=== PATIENT | male | born 1975 | race Caucasian/White ===

== ENCOUNTER 2018-03-22 01:52 | Inpatient (IN) ==
[2018-03-22] MEDS ORDERED: Sod Chloride 0.9% Inj 1,000 ML IV.SIG ONE (03:04)
--- NOTE | 2018-03-22 03:14 | ED ---
HPI General Chief complaint: Overdose Stated complaint: poss od/Psych eval/DBPD Time Seen by Provider: 03/22/18 01:59 Source: patient and other Mode of arrival: EMS Limitations: no limitations History of Present Illness HPI narrative: 42yo M with PMH of bipolar disorder was brought in as [place] [facility] after he attempted to kill himself by overdosing on his medications. He took 30 of 10mg of lexapro 2 hours prior to coming. Denies any fever, chest pain, sob, n/v, abdominal pain, focal weakness or numbness. Related Data Home Medications Medication Instructions Recorded Confirmed No Known Home Medications 03/22/18 03/22/18 Allergies Allergy/AdvReac Type Severity Reaction Status Date / Time No Known Allergies Allergy Verified 03/22/18 03:04 Review of Systems ROS: all other systems reviewed are negative [facility] Medical History Medical History Bipolar 1 disorder (Acute) Emphysema of lung (Acute) Major depressive disorder (Acute) Surgical History Surgical History H/O: vasectomy (Acute) Social History Social History Substance History: No History of Abuse Second Hand Smoke Exposure: Yes Smoking Status: Current every day smoker Tobacco Type: Cigarettes How Often Do You Have a Drink Containing Alcohol: Never Recent Travel in [facility] within the Last 8 Weeks: No Recent Out of Country Travel within the Last 8 Weeks: No Immunization History Tetanus Immunization: >5 Years Exam Narrative Exam Narrative: GENERAL: 42yo M not in distress. SKIN: Focused skin assessment warm/dry. HEAD: Atraumatic. Normocephalic. EYES: Pupils equal and round at 4mm bilaterally. EOMI. ENT: No nasal bleeding or discharge. Mucous membranes pink and moist. NECK: Trachea midline. No JVD. CARDIOVASCULAR: Regular rate and rhythm. No murmur appreciated. RESPIRATORY: No accessory muscle use. Clear to auscultation. Breath sounds equal bilaterally. GASTROINTESTINAL: Abdomen soft, non-tender, nondistended. MUSCULOSKELETAL: No obvious deformities. No clubbing. No cyanosis. No edema. NEUROLOGICAL: Awake and alert. No obvious cranial nerve deficits. Motor grossly within normal limits in all extremities. Sensation intact. Normal speech. PSYCHIATRIC: Depressed. Course Initial Documented Vital Signs Temperature 98.6 F 03/22/18 02:10 Pulse Rate 62 03/22/18 02:10 Respiratory Rate 13 03/22/18 02:10 Blood Pressure 148/67 H 03/22/18 02:10 Pulse Oximetry 96 03/22/18 02:10 Last Documented Vital Signs Temperature 98 F 03/23/18 06:00 Pulse Rate 60 03/23/18 06:00 Respiratory Rate 17 03/23/18 06:00 Blood Pressure 160/80 H 03/23/18 06:00 Pulse Oximetry 95 03/23/18 06:00 Medical Decision Making MDM Narrative Medical decision making narrative: 42yo M brought in as [place] [facility] for suicidal attempt by overdosing on his lexapro. He is awake and alert and answering questions. Following commands. Pt placed on continuous environmental monitoring technician. Will obtain labs for overdose, EKG. Will give NS IVF and call poison control. Labs reviewed, mild leukocytosis. H/H normal. CMP unremarkable. Alcohol negative. Acetaminophen less than 1. Salicylate 3.1. Utox negative. Poison control was called and recommend symptomatic treatment, repeat EKG at 6:15am, and seizure precautions. Repeat EKG showed normal QTc. Pt has been observed in the ED and has normal mental status and no seizures. Pt is medically clear for psych evaluation. Medical Screen Exam Complete: Yes Emergency Medical Condition: Yes Lab Data Result diagrams: 03/22/18 03:25 03/22/18 03:25 Lab Results 03/22/18 03/22/18 03/22/18 Range/Units 03:25 03:25 03:25 WBC 13.6 H (4.0-11.0) th/mm3 RBC 4.38 L (4.50-5.90) mil/mm3 Hgb 13.1 (13.0-17.0) gm/dL Hct 40.0 (39.0-51.0) % MCV 91.4 (80.0-100.0) fL MCH 29.9 (27.0-34.0) pg MCHC 32.7 (32.0-36.0) % RDW 14.3 (11.6-17.2) % Plt Count 282 (150-450) th/mm3 MPV 9.2 (7.0-11.0) fL Prelim Diff (Auto) Slide review pending Neut % (Auto) 61.8 (16.0-70.0) % Lymph % (Auto) 28.4 (9.0-44.0) % [place] % (Auto) 6.7 (0.0-8.0) % Eos % (Auto) 2.0 (0.0-4.0) % Baso % (Auto) 1.1 (0.0-2.0) % Neut # (Auto) 8.4 H (1.8-7.7) th/mm3 Lymph # (Auto) 3.9 (1.0-4.8) th/mm3 [place] # (Auto) 0.9 (0.0-0.9) th/mm3 Eos # (Auto) 0.3 (0.0-0.4) th/mm3 Baso # (Auto) 0.2 (0.0-0.2) th/mm3 WBC Differential Manual diff final Seg Neuts % (Manual) 66 (16-70) % Lymphocytes % (Manual) 26 (9-44) % Monocytes % (Manual) 7 (0-8) % Myelocytes % (Man) 1 H (0-0) % Abs Neuts (Manual) 9.1 H (1.8-7.7) th/mm3 Differential Comment . Platelet Estimate Normal (Normal) Platelet Morphology Normal (Normal) RBC Morphology Normal (Normal) PT 10.1 (9.8-11.6) sec INR 1.0 Ratio APTT 28.5 (23.4-31.7) sec Sodium 139 (136-145) meq/L Potassium 3.8 (3.5-5.1) meq/L Chloride 102 (98-107) meq/L Carbon Dioxide 25.5 (21.0-32.0) meq/L Anion Gap 12 (5-15) meq/L BUN 5 L (7-18) mg/dL Creatinine 1.04 (0.60-1.30) mg/dL Estimated GFR 78 L (>89) mL/min Random Glucose 91 (74-106) mg/dL Calcium 8.7 (8.5-10.1) mg/dL Total Bilirubin 0.1 L (0.2-1.0) mg/dL AST 33 (15-37) U/L ALT 44 (12-78) U/L Alkaline Phosphatase 106 (45-117) U/L Total Protein 7.5 (6.4-8.2) g/dL Albumin 3.4 (3.4-5.0) g/dL TSH 1.990 (0.358-3.740) uIU/mL Salicylates (2.8-20.0) mg/dL Urine Opiates Screen (Neg) Acetaminophen Less than 2.0 L (10.0-30.0) mcg/mL Ur Barbiturates Screen (Neg) Ur Amphetamines Screen (Neg) U Benzodiazepines Scrn (Neg) Urine Cocaine Screen (Neg) U Cannabinoids Screen (Neg) Serum Alcohol Less than 3 (0-5) mg/dL 03/22/18 03/22/18 Range/Units 03:25 03:25 WBC (4.0-11.0) th/mm3 RBC (4.50-5.90) mil/mm3 Hgb (13.0-17.0) gm/dL Hct (39.0-51.0) % MCV (80.0-100.0) fL MCH (27.0-34.0) pg MCHC (32.0-36.0) % RDW (11.6-17.2) % Plt Count (150-450) th/mm3 MPV (7.0-11.0) fL Prelim Diff (Auto) Neut % (Auto) (16.0-70.0) % Lymph % (Auto) (9.0-44.0) % [place] % (Auto) (0.0-8.0) % Eos % (Auto) (0.0-4.0) % Baso % (Auto) (0.0-2.0) % Neut # (Auto) (1.8-7.7) th/mm3 Lymph # (Auto) (1.0-4.8) th/mm3 [place] # (Auto) (0.0-0.9) th/mm3 Eos # (Auto) (0.0-0.4) th/mm3 Baso # (Auto) (0.0-0.2) th/mm3 WBC Differential Seg Neuts % (Manual) (16-70) % Lymphocytes % (Manual) (9-44) % Monocytes % (Manual) (0-8) % Myelocytes % (Man) (0-0) % Abs Neuts (Manual) (1.8-7.7) th/mm3 Differential Comment Platelet Estimate (Normal) Platelet Morphology (Normal) RBC Morphology (Normal) PT (9.8-11.6) sec INR Ratio APTT (23.4-31.7) sec Sodium (136-145) meq/L Potassium (3.5-5.1) meq/L Chloride (98-107) meq/L Carbon Dioxide (21.0-32.0) meq/L Anion Gap (5-15) meq/L BUN (7-18) mg/dL Creatinine (0.60-1.30) mg/dL Estimated GFR (>89) mL/min Random Glucose (74-106) mg/dL Calcium (8.5-10.1) mg/dL Total Bilirubin (0.2-1.0) mg/dL AST (15-37) U/L ALT (12-78) U/L Alkaline Phosphatase (45-117) U/L Total Protein (6.4-8.2) g/dL Albumin (3.4-5.0) g/dL TSH (0.358-3.740) uIU/mL Salicylates 3.1 (2.8-20.0) mg/dL Urine Opiates Screen Neg (Neg) Acetaminophen (10.0-30.0) mcg/mL Ur Barbiturates Screen Neg (Neg) Ur Amphetamines Screen Neg (Neg) U Benzodiazepines Scrn Neg (Neg) Urine Cocaine Screen Neg (Neg) U Cannabinoids Screen Neg (Neg) Serum Alcohol (0-5) mg/dL ECG Data EKG Prior to Arrival: No Attestation: I personally reviewed and interpreted this ECG as follows: Interpretation: NSR 64bpm. Normal axis. LA interval 156ms. QTc at higher limit of 441ms. No significant ST elevation or depression. EKG #2: Sinus bradycardia at 57bpm. Normal axis. LA interval 149ms. QTc 433ms. Narrow QRS. No significant ST elevation or depression. Discharge Plan Discharge Disposition Patient Disposition: Sign Out(ED Internal Use Only) Discharge Order Discharge Orders: ED Use Only Admit Order (Routine); Ordered 03/22/18 Ordered By: Rui Gonzales Discharge Details Diagnosis: Suicidal ideation Physicians Team ED Provider: Padmini Singer Primary Care Provider: Primary Care Juli Thompson Attending Provider: Rui Gonzales Other Providers: Jony Villalba Status ED Status: Left Department Discharge Information Discharge Date/Time: 03/22/18 11:05
[2018-03-22 03:36] LABS: Baso # (Auto) 0.2 th/mm3 (0.0-0.2); Baso % (Auto) 1.1 % (0.0-2.0); Eos # (Auto) 0.3 th/mm3 (0.0-0.4); Hemoglobin 13.1 gm/dL (13.0-17.0); Lymph # (Auto) 3.9 th/mm3 (1.0-4.8); Lymph % (Auto) 28.4 % (9.0-44.0); Mean Corpuscular HGB Conc 32.7 % (32.0-36.0); Mean Corpuscular Hemoglobin 29.9 pg (27.0-34.0); Mean Corpuscular Volume 91.4 fL (80.0-100.0); Mean Platelet Volume 9.2 fL (7.0-11.0); Mono # (Auto) 0.9 th/mm3 (0.0-0.9); Mono % (Auto) 6.7 % (0.0-8.0); Neut # (Auto) 8.4 th/mm3 (1.8-7.7); Neut % (Auto) 61.8 % (16.0-70.0); Platelet Count 282 th/mm3 (150-450); Red Blood Count 4.38 mil/mm3 (4.50-5.90); Red Cell Distribution Width 14.3 % (11.6-17.2); White Blood Count 13.6 th/mm3 (4.0-11.0)
[2018-03-22 03:47] LABS: Activated Partial Thrombo Time 28.5 sec (23.4-31.7); Prothrombin Time 10.1 sec (9.8-11.6)
[2018-03-22 03:54] LABS: Amphetamine Screen,Urine Neg (Neg); Barbiturate Screen,Urine Neg (Neg); Cannabinoid Screen,Urine Neg (Neg); Cocaine Screen,Urine Neg (Neg)
[2018-03-22 03:57] LABS: Albumin 3.4 g/dL (3.4-5.0); Anion Gap 12 meq/L (5-15); Aspartate Aminotransferase 33 U/L (15-37); Blood Urea Nitrogen 5 mg/dL (7-18); Calcium 8.7 mg/dL (8.5-10.1); Carbon Dioxide 25.5 meq/L (21.0-32.0); Chloride 102 meq/L (98-107); Glomerular Filtration Rate 78 mL/min (>89); Glucose,Random 91 mg/dL (74-106); Potassium 3.8 meq/L (3.5-5.1); Sodium 139 meq/L (136-145)
[2018-03-22 03:58] LABS: Alanine Aminotransferase 44 U/L (12-78)
[2018-03-22 04:06] LABS: Opiate Screen,Urine Neg (Neg)
[2018-03-22 04:08] LABS: Alkaline Phosphatase 106 U/L (45-117); Total Protein 7.5 g/dL (6.4-8.2)
[2018-03-22 04:11] LABS: Lymphocytes 26 % (9-44); Monocytes 7 % (0-8); Myelocytes 1 % (0-0)
[2018-03-22 04:12] LABS: Platelet Estimate Normal (Normal); Platelet Morphology Normal (Normal); RBC Morphology Normal (Normal)
[2018-03-22] MEDS ORDERED: Bisacodyl 10 MG Supp RECTAL PRN (08:17)
[2018-03-22] MEDS ORDERED: Aluminum/Magnesium/Simethacone Susp 30 ML UDC PO PRN (08:17)
--- NOTE | 2018-03-22 10:44 | ECG ---
Date Performed: 03/22/2018 Time Performed: 06:31:17 PTAGE: 42 years EKG: SINUS BRADYCARDIA BORDERLINE ECG NO PREVIOUS TRACING DOCTOR: Rodrigo Lopez Interpretating Date/Time 03/22/2018 10:44:16
--- NOTE | 2018-03-22 10:48 | ECG ---
Date Performed: 03/22/2018 Time Performed: 02:09:39 PTAGE: 42 years EKG: Sinus rhythm NORMAL ECG NO PREVIOUS TRACING DOCTOR: Rodrigo Lopez Interpretating Date/Time 03/22/2018 10:47:08
[2018-03-22] MEDS: Senna/Docusate Sodium 8.6/50 MG Tablet PO SCH ×2 (12:01→20:17)
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
--- NOTE | 2018-03-22 14:30 | P.PNPSY ---
Subjective Chief Complaint: Depression with recent suicide attempt Remarks: Patient seen for second opinion, chart reviewed, patient discussed with nursing staff. The patient was found sleeping in his bed and awakened with his name pronounced firmly and loudly. The patient admits to recent depression and suicide attempt. He was asked about active suicidal ideations and he denies. He is asked about his motivation to live and he shrugged his shoulders and communication of ambivalence. We discussed the initial treatment plan and the patient expressed anxiety about being in the hospital and expressed a preference for discharge. He was notified that he will be held in the hospital under the [place] act for further observation and treatment in the expressed his willingness to cooperate. He denies any auditory or visual hallucinations. He reports feeling safe on the unit but would rather not be here. He admits to depressed mood with hopelessness helplessness and recently disturbed sleep. Review of Systems unobtainable due to mental status Mental Status Examination Appearance: Appropriate, Disheveled Consciousness: Somnolent Orientation: x4 Motor Activity: Normal gait Speech: Unremarkable Language: Adequate Fund of Knowledge: Adequate Attention and Concentration: Adequate Memory: Unremarkable Mood: Sad, Anxious Affect: Blunt Thought Process & Associations: Intact Thought Content: Appropriate Hallucination Type: None Delusion Type: None Suicidal Ideation: No Suicidal Plan: No Suicidal Intention: No Homicidal Ideation: No Homicidal Plan: No Homicidal Intention: No Insight: Poor Judgment: Poor Assessment and Plan - Assessment (1) Adjustment disorder with depressed mood Code(s): F43.21 - Adjustment disorder with depressed mood Status: Acute - Plan Plan: Continue with admission to inpatient psychiatry at [facility]; involuntary/ competent legal status. Second opinion signed and placed on chart. Justification for Continued Inpatient Stay: Patient remains an elevated risk for self-harm and will require further inpatient stabilization and preparation of a safe discharge plan. Request Healthcare Surrogate/Guardian Advocate?: No
[2018-03-23] MEDS: Senna/Docusate Sodium 8.6/50 MG Tablet PO SCH ×2 (09:09→20:27)
--- NOTE | 2018-03-23 15:10 | P.PNPSY ---
Subjective Chief Complaint: Depression with recent suicide attempt Remarks: Reviewed electronic medical records and discussed case with staff. Follow-up was conducted in the patient's room with ISMAEL Lipscomb present. The patient is found lying in his bed sleeping. He wakes to verbal stimuli. He states, "I am okay". He reports that he is had a good night sleep and that previously he had been experiencing insomnia so this was some relief. He advises his appetite's been decreased and states that he still feels somewhat tired. He denies suicidal ideation at this time. I have obtained his signature on a consent form for hydroxyzine for anxiety and Benadryl for insomnia. Mental Status Examination Appearance: Appropriate, Disheveled Consciousness: Somnolent Orientation: x4 Motor Activity: Normal gait Speech: Unremarkable Language: Adequate Fund of Knowledge: Adequate Attention and Concentration: Adequate Memory: Unremarkable Mood: Sad, Anxious Affect: Blunt Thought Process & Associations: Intact Thought Content: Appropriate Hallucination Type: None Delusion Type: None Suicidal Ideation: No Suicidal Plan: No Suicidal Intention: No Homicidal Ideation: No Homicidal Plan: No Homicidal Intention: No Insight: Poor Judgment: Poor Assessment and Plan - Assessment (1) Adjustment disorder with depressed mood Code(s): F43.21 - Adjustment disorder with depressed mood Status: Acute - Plan Plan: Patient will be reevaluated by the attending psychiatrist. Continue with current treatment plan. Justification for Continued Inpatient Stay: Moving this patient to a less restrictive environment would likely result in decompensation. Request Healthcare Surrogate/Guardian Advocate?: No
[2018-03-24 11:14] LABS: Calcium 8.4 mg/dL (8.5-10.1); Carbon Dioxide 27.9 meq/L (21.0-32.0); Potassium 4.2 meq/L (3.5-5.1)
[2018-03-24 11:16] LABS: Chol/HDL Ratio 5.4 Ratio; HDL Cholesterol 38.7 mg/dL (40.0-60.0)
[2018-03-24] MEDS: Senna/Docusate Sodium 8.6/50 MG Tablet PO SCH ×3 (12:43→20:42)
[2018-03-24 13:40] LABS: Hemoglobin A1c 5.7 % (4.3-6.0)
--- NOTE | 2018-03-24 14:23 | P.PNPSY ---
Subjective Chief Complaint: Depression with recent suicide attempt Remarks: Patient seen and examined in weekend coverage for Dr. Villalba. Chart reviewed. Case discussed with nursing staff. No behavioral issues noted. On my examination today, the patient reports that he made his presenting ingestion because he was "having a tough time." The patient says that he was feeling quite jittery and anxious. He does report that anxiety is something that he has struggled with in the past, and he does report some mild, chiefly generalized anxiety ongoing now. Denies any suicidal ideation. No reported issues with mood. No hopelessness or worthlessness. We discussed initiation of p.r.n. Atarax for the management of anxiety, and the patient is agreeable. No physical complaints. Vital Signs Temp Pulse Resp BP Pulse Ox 03/24/18 06:00 98.8 F 56 L 18 141/75 H 96 Laboratory Results - last 24 hr 03/24/18 03/24/18 10:19 10:19 Sodium 141 Potassium 4.2 Chloride 108 H Carbon Dioxide 27.9 Anion Gap 5 BUN 10 Creatinine 1.00 Estimated GFR 82 L Random Glucose 91 Hemoglobin A1c 5.7 Calcium 8.4 L Triglycerides 200 H Cholesterol 209 H LDL Cholesterol, Calc 130 H HDL Cholesterol 38.7 L Cholesterol/HDL Ratio 5.40 Labs reviewed. Review of Systems All other systems reviewed negative except as stated in HPI Mental Status Examination Appearance: Appropriate Consciousness: Alert Orientation: Person, Place (At least) Motor Activity: Normal gait, Other (No motor abnormalities noted) Speech: Unremarkable Language: Adequate Fund of Knowledge: Adequate Attention and Concentration: Adequate Memory: Unremarkable Mood: Anxious Affect: Blunt Thought Process & Associations: Intact Thought Content: Appropriate Hallucination Type: None Delusion Type: None Suicidal Ideation: No Suicidal Plan: No Suicidal Intention: No Homicidal Ideation: No Homicidal Plan: No Homicidal Intention: No Insight: Poor Judgment: Poor Assessment and Plan - Assessment (1) Adjustment disorder with depressed mood Code(s): F43.21 - Adjustment disorder with depressed mood Status: Acute - Plan Plan: Add Atarax 25 mg every 6 hours as needed for anxiety. R/B/A for this medication discussed with patient. Continue to monitor on the inpatient unit. Continue other medications and care as ordered. Justification for Continued Inpatient Stay: Monitoring for impairment in safety. Discharge Planning: Per Dr. Villalba. Request Healthcare Surrogate/Guardian Advocate?: No
[2018-03-25] MEDS: Senna/Docusate Sodium 8.6/50 MG Tablet PO SCH ×2 (08:44→20:29)
--- NOTE | 2018-03-25 15:40 | P.PNPSY ---
Subjective Chief Complaint: Depression with recent suicide attempt Remarks: Patient seen for follow-up, chart reviewed, patient discussed with nursing staff ; we reviewed the patient's mood, thoughts, and behaviors from overnight and this morning. Nurse reports the patient slept 8 hours overnight and he has been pleasant upon approach from staff. Affect remains blunted. He remains mainly seclusive to his room. He denies suicidal or homicidal ideations. Patient was seen during group recreation therapy and he was fully engaged in the activity and appropriate. He adamantly denies active suicidal or homicidal ideations. He reports sincere motivation to return home to [place] where he has the support of his family. Today he rates his depression as a 6 out of 10 and his anxiety is a 6 out of 10. He reports good response to Atarax as needed for anxiety and is satisfied with it as replacement for his Klonopin. He did express a desire to be placed back on his Lexapro which had just been restarted in the week prior to this admission and he reports good efficacy from past trials. Review of Systems All other systems reviewed negative except as stated in HPI Mental Status Examination Appearance: Appropriate Consciousness: Alert Orientation: x4 Motor Activity: Normal gait Speech: Unremarkable Language: Adequate Fund of Knowledge: Adequate Attention and Concentration: Adequate Memory: Unremarkable Mood: Anxious Affect: Blunt Thought Process & Associations: Intact Thought Content: Appropriate Hallucination Type: None Delusion Type: None Suicidal Ideation: No Suicidal Plan: No Suicidal Intention: No Homicidal Ideation: No Homicidal Plan: No Homicidal Intention: No Insight: Fair Judgment: Impulsive Assessment and Plan - Assessment (1) Moderate recurrent major depression Code(s): F33.1 - Major depressive disorder, recurrent, moderate Status: Acute - Plan Plan: 03/25/2018: Good response to treatment, the patient's suicidal ideations are in remission and his depression and anxiety symptoms have improved. Patient remains motivated for recovery and would like to be discharged so that he can return home to [place]. Plan: 1. Continue further inpatient treatment and observation due to continued high risk for self-harm. 2. Restart Lexapro 10 mg/day for treatment of recurrent depression. 3. Continue Atarax 25 mg every 6 hours as needed for anxiety. 4. Discharge planning: Patient is without funds to buy a bus ticket back to [place] but he was encouraged to seek help from his family and discuss further with unit geriatric social work professor. Anticipate discharge this week. Justification for Continued Inpatient Stay: Patient remains an elevated risk for self-harm and will require further inpatient stabilization and preparation of a safe discharge plan. Moving patient to a less restrictive environment at this time may result in decompensation. Request Healthcare Surrogate/Guardian Advocate?: No
[2018-03-25] MEDS: Escitalopram 10 MG Tablet PO SCH (16:39)
[2018-03-25 17:16] VITALS: RESP 18
[2018-03-26] MEDS: Senna/Docusate Sodium 8.6/50 MG Tablet PO SCH ×2 (08:32→20:38)
[2018-03-26] MEDS: Escitalopram 10 MG Tablet PO SCH (08:32)
--- NOTE | 2018-03-26 16:04 | P.PNPSY ---
Subjective Chief Complaint: Depression with recent suicide attempt Remarks: Patient seen for follow-up, chart reviewed, patient discussed with nursing staff ; we reviewed the patient's mood, thoughts, and behaviors from overnight and this morning. There is reports the patient slept for approximately 7 hours overnight. He was observed sitting in the day room watching TV interacting appropriately. He does complain of anxiety and requested Atarax 25 mg this morning. Patient was seen at bedside asleep after breakfast but easy to awaken. He continues to deny suicidal or homicidal ideations. He denies any auditory or visual hallucinations. He admits to continued depression but he is hopeful from restart of his Lexapro and his family's showing of support for him to come home to [place]. The patient would like to be discharged today but he has no means of transportation. We discussed discharge planning and he agrees to seek financial assistance from family for transportation oral appeal to [facility] for assistance if needed. Review of Systems All other systems reviewed negative except as stated in HPI Mental Status Examination Appearance: Appropriate Consciousness: Alert Orientation: x4 Motor Activity: Normal gait Speech: Unremarkable Language: Adequate Fund of Knowledge: Adequate Attention and Concentration: Adequate Memory: Unremarkable Mood: Anxious Affect: Blunt Thought Process & Associations: Intact Thought Content: Appropriate Hallucination Type: None Delusion Type: None Suicidal Ideation: No Suicidal Plan: No Suicidal Intention: No Homicidal Ideation: No Homicidal Plan: No Homicidal Intention: No Insight: Fair Judgment: Impulsive Assessment and Plan - Assessment (1) Moderate recurrent major depression Code(s): F33.1 - Major depressive disorder, recurrent, moderate Status: Acute - Plan Plan: 03/25/2018: Good response to treatment, the patient's suicidal ideations are in remission and his depression and anxiety symptoms have improved. Patient remains motivated for recovery and would like to be discharged so that he can return home to [place]. Plan: 1. Continue further inpatient treatment and observation due to continued high risk for self-harm. 2. Restart Lexapro 10 mg/day for treatment of recurrent depression. 3. Continue Atarax 25 mg every 6 hours as needed for anxiety. 4. Discharge planning: Patient is without funds to buy a bus ticket back to [place] but he was encouraged to seek help from his family and discuss further with unit licensed clinical social worker. Anticipate discharge this week. 03/26/2018: Good response to treatment, the patient's suicide ideations remain in remission and he is expressing increased hope for the future with plans of returning home to [place]. He has tolerated the restart of Lexapro and he is reporting satisfactory efficacy from the Atarax as needed for anxiety. He remains a high risk for suicide due to his severe psychosocial stressors and history of suicide attempts therefore a safe discharge plan must be in place to mitigate these risks. Continue inpatient treatment and stabilization, day of treatment #1 of the Lexapro and safe discharge still pending. Anticipate discharge home to [place] tomorrow with the support of family and/ or [facility] for a bus ticket home. The patient's family agrees to be at the bus station in [place] to pick him up. Justification for Continued Inpatient Stay: Patient remains an elevated risk for self-harm and will require further inpatient stabilization and preparation of a safe discharge plan. Moving patient to a less restrictive environment at this time may result in decompensation. Request Healthcare Surrogate/Guardian Advocate?: No
[2018-03-26 16:07] VITALS: O2SAT 95
[2018-03-27 05:39] VITALS: BP 129/68; PULSE 55; TEMP 97.4
[2018-03-27] MEDS: Senna/Docusate Sodium 8.6/50 MG Tablet PO SCH (08:14)
[2018-03-27] MEDS: Escitalopram 10 MG Tablet PO SCH (08:14)
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
== END 2018-03-27 14:00 | disposition home or self-care (01) ==
LOC: NEPE 01:52 → NEDA 08:17 → H270 11:01
PROVIDERS: ADMIT Psychiatry & Neurology Psychiatry; ATTEND Psychiatry & Neurology Psychiatry